=== PATIENT | female | born 1940 | race Two or more races ===

== ENCOUNTER 2017-06-22 11:39 | Outpatient (CLI) | payer OTHER | END 2017-06-22 12:04 | disposition home or self-care (01) | LOC: MAMO-SONO 11:39 → SONOGRAMA 11:39 → MAMO-SONO 12:04 | DX: Z12.31 Encounter for screening mammogram for malignant neoplasm of breast (principal); Z87.898 Personal history of other specified conditions; N64.51 Induration of breast; E04.2 Nontoxic multinodular goiter | CPT/HCPCS: 76536; 76641; G0202 ==

== ENCOUNTER 2017-08-10 10:39 | Outpatient (CLI) | payer OTHER | END 2017-08-10 12:00 | disposition home or self-care (01) | LOC: NUCLEAR 10:39 | DX: M81.0 Age-related osteoporosis without current pathological fracture (principal); Z13.820 Encounter for screening for osteoporosis ==

== ENCOUNTER → 2017-08-23 | Outpatient (CLI) | payer OTHER | END | disposition home or self-care (01) | LOC: SONOGRAMA 11:20 | DX: E04.2 Nontoxic multinodular goiter (principal) ==

== ENCOUNTER 2018-08-11 12:04 | Outpatient (CLI) | payer OTHER | END 2018-08-11 12:15 | disposition home or self-care (01) | LOC: SONOGRAMA 12:04 | DX: N64.51 Induration of breast (principal) ==

== ENCOUNTER 2018-11-24 13:56 | Outpatient (CLI) | payer OTHER | END 2018-11-24 13:58 | disposition home or self-care (01) | LOC: SONOGRAMA 13:56 → MAMO-SONO 14:15 | DX: E04.2 Nontoxic multinodular goiter (principal) ==

== ENCOUNTER → 2018-12-15 | Outpatient (CLI) | payer OTHER | END | disposition home or self-care (01) | LOC: SONOGRAMA 09:09 | DX: E04.1 Nontoxic single thyroid nodule (principal) ==

== ENCOUNTER 2019-08-16 11:21 | Outpatient (CLI) | payer OTHER | END 2019-08-16 11:27 | disposition home or self-care (01) | LOC: NUCLEAR 11:21 | DX: M85.89 Other specified disorders of bone density and structure, multiple sites (principal) ==

== ENCOUNTER 2020-09-13 13:35 | Outpatient (CLI) | payer OTHER | END 2020-09-13 13:43 | disposition home or self-care (01) | LOC: MAMO-SONO 13:35 | PROVIDERS: ATTEND Obstetrics & Gynecology | DX: Z12.31 Encounter for screening mammogram for malignant neoplasm of breast (principal); Z87.898 Personal history of other specified conditions; N64.59 Other signs and symptoms in breast ==